=== PATIENT | female | born 1945 | race African-American/Black ===

== ENCOUNTER 2022-08-07 12:19 | Emergency (ER) | payer OTHER ==
[2022-08-07 12:33] VITALS: BMI 28.0
[2022-08-07 14:15] LABS: BASO % 0.7 % (0-2.0); EOS % 0.3 % (0-4.5); HEMATOCRIT 28.6 % (32.4-45.2); HEMOGLOBIN 9.8 GM/dL (10.7-15.3); LYMPH % 50.5 % (8-40); MCHC 34.2 g/dl (32.0-36.0); MEAN CELL VOLUME 73.2 fl (80-96); MEAN PLT VOLUME 8.4 fl (7.5-11.1); MONO % 11.1 % (3.8-10.2); NEUT % 37.4 % (42.8-82.8); PLATELET COUNT 91 10^3/uL (134-434); RDW 19.2 % (11.6-15.6); WHITE BLOOD COUNT 4.2 K/mm3 (4.0-10.0)
[2022-08-07 14:27] LABS: INR 1.12 (0.83-1.09); PROTHROMBIN TIME (PATIENT) 12.9 SEC (9.7-13.0)
[2022-08-07 14:30] LABS: ACTIVATED PTT 34.5 SECONDS (25.2-36.5)
[2022-08-07 14:52] LABS: ALBUMIN 3.8 g/dl (3.4-5.0); CALCIUM 9.1 mg/dL (8.5-10.1)
[2022-08-07 14:53] LABS: BLOOD UREA NITROGEN 17.2 mg/dL (7-18)
[2022-08-07 14:56] LABS: CREATININE 0.9 mg/dL (0.55-1.3)
[2022-08-07 14:57] LABS: BILIRUBIN,TOTAL 0.8 mg/dL (0.2-1); TOT PROT 7.5 g/dl (6.4-8.2)
[2022-08-07 14:59] VITALS: BP 127/78; PULSE 65; RESP 20
[2022-08-07 15:11] VITALS: TEMP 98.5
== END 2022-08-07 15:56 | disposition home or self-care (01) ==
LOC: JER 12:19
DX: K62.5 Hemorrhage of anus and rectum (principal)
CPT/HCPCS: 36415; 80053; 82272; 85025; 85610; 85730; 86850; 86900; 86901; 99283-25